=== PATIENT | female | born 1990 | race Caucasian/White ===

== ENCOUNTER → 2018-03-29 11:34 | Outpatient (REF) | payer BC, SELFPAY ==
[2018-03-30 14:36] LABS: Chlamydia Result Negative; GC Result Negative; Specimen Description CERVIX
== END ==
LOC: LBN 11:34
PROVIDERS: Visit Provider Nurse Practitioner Women's Health
DX: Z11.3 Encounter for screening for infections with a predominantly sexual mode of transmission (principal)
CPT/HCPCS: 87491; 87591

== ENCOUNTER 2019-02-16 15:59 | Outpatient (REF) | payer BC, SELFPAY | END 2019-02-16 16:19 | LOC: LBN 15:59 | PROVIDERS: Visit Provider Nurse Practitioner Women's Health | DX: R30.0 Dysuria (principal) | CPT/HCPCS: 87077; 87086; 87186 ==

== ENCOUNTER 2019-04-20 10:59 | Outpatient (REF) | payer BC, SELFPAY | END 2019-04-20 11:19 | LOC: LBN 10:59 | PROVIDERS: Visit Provider Nurse Practitioner Women's Health | DX: R30.0 Dysuria (principal) | CPT/HCPCS: 87077; 87086; 87186 ==

== ENCOUNTER 2019-04-23 07:08 | Emergency (ER) | payer BC, SELFPAY ==
[2019-04-23 07:21] VITALS: BP 106/61; PULSE 75; RESP 16; TEMP 36.9; O2SAT 100
--- NOTE | 2019-04-23 07:32 | ED.GENADUL_ITS ---
Discharge Plan Disposition Patient Disposition: HOME Condition: Stable Discharge Details Chief Complaint: Urinary Clinical Impression: UTI (urinary tract infection) Primary Care Provider: None,None ED Provider: Chio Yap Home Meds and New Rx's Prescriptions: New ciprofloxacin HCl [Cipro] 500 mg tablet 500 mg PO BID Qty: 13 RF: 0 Discontinued sulfamethoxazole-trimethoprim [Bactrim DS] 800-160 mg tablet 1 tab PO BID 7 Days Qty: 14 RF: 0 No Action Mirena 1 EACH intrauterine device 1 ea Intrauterine ONCE Qty: 1 RF: 0 Discharge Instructions Instructions: Ciprofloxacin (By mouth), Urinary Tract Infection in Women (ED), Kidney Infection (ED) Additional Instructions: Please return immediately to the emergency department if you develop any new or worsening symptoms or if you become otherwise concerned. Please stop taking Pyridium and Bactrim as we discussed. It is extremely important that you call as soon as possible to make an appointment to be seen in follow-up for this visit by your primary care doctor. Stand Alone Forms: Work Release Discharge Data Discharge Date/Time-TO BE ENTERED AT DEPARTURE: 04/23/19 08:50 Medical Decision Making Marielena Soliman is a 29-year-old woman without reported history of major medical problems who presented to the emergency department with right flank pain after getting Bactrim for bilateral flank pain 04/20, has been taking p.o. without issue. On exam patient is very well and nontoxic appearing. Positive right CVA tenderness. Benign abdominal exam. Concern for pyelonephritis. Exam/history is not consistent with sepsis, acute emergent intra-abdominal process, acute aortic etiology, life-threatening metabolic/electrolyte derangement, dehydration, methemoglobinemia secondary to Pyridium use, other acute emergent life-threatening process. Plan for UA, urine test. On record review urine culture positive for staph saprophyticus and E. coli, sensitivities pending. I called lab, who states that culture sensitivities to be released shortly. Will await. Sensitivities show E. coli sensitive to Bactrim. Unclear why patient symptoms have returned, will switch from Bactrim to Cipro to cover both E. coli and staph saprophyticus. Patient continues to be very well-appearing and nontoxic on exam, laughing, walking about the emergency department without issue. I had a lengthy discussion with the patient regarding home care including rest and need to stay hydrated, discontinuation of Bactrim or further Pyridium, return to emergency department precautions, importance of outpatient follow-up with PCP. Patient placed on list for assistance from care management to establish PCP. Patient verbalized understanding the plan was amenable. All questions were answered. Patient was discharged home with clear plan for outpatient follow-up. Medical Records Medical records reviewed: Yes I reviewed the patient's medical records. Lab Data Lab results reviewed: Yes I reviewed the patient's lab results. Laboratory Tests Range/Units 04/23/19 07:17 Urine Color (Yellow) [place] Urine Clarity (Clear) Clear Urine pH (5-8) Ur Specific Brilliant (1.005-1.025) 1.020 Urine Protein (Negative) mg/dL Color interference Urine Ketones (Negative) mg/dL Color interference Urine Blood (Negative) Color interference Urine Nitrite (Negative) Color interference Urine Bilirubin (Negative) Color interference Urine Urobilinogen (Up TO 0.2) EU/dL Color interference Ur Leukocyte Esterase (Negative) Color interference Urine RBC (0-2) 0-2 Urine WBC (0-5) HPF 0-2 Ur Epithelial Cells (Negative) HPF Moderate Urine Crystals (Negative) HPF Negative Urine Bacteria (Negative) HPF Few Urine Casts (Negative) LPF Negative Urine Mucus (Negative) Trace Ur Culture Indicated? No Urine Glucose (Negative) mg/dL Color interference HPI General Mode of arrival: ambulatory . Date/Time Provider Initiated Documentation: 04/23/19 07:32 . Limitations to Documentation: no limitations . Information obtained by: patient . HPI Narrative: Marielena Soliman is a 29 y/o woman without reported history of major medical problems presenting to the emergency department with right-sided flank pain. Per patient report and record review, patient was seen 04/20 for bilateral flank pain and urinary frequency. UA was performed, culture sent, patient sent home with 7-day prescription for Bactrim. Patient reports that she has been taking antibiotic as prescribed. Patient reports that her bilateral flank pain initially seemed to improve after she started Bactrim, but then right flank pain returned. Patient reports that flank pain is not worse than her initial presenting symptoms 04/20. Patient reports that she continues to have urinary frequency. Denies dysuria. Patient reports that she had temp of 100 at work today. Patient denies any other pain, vomiting, diarrhea, cough, shortness of breath, rash. She has been eating and drinking as usual. She reports that she has been able to go about her daily activities as usual. 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 Patient states that she would like to go back to her shift today after ED visit is completed. Has been taking Pyridium intermittently over the past 3 days. Related Data Home Medications Medication Instructions Recorded Confirmed levonorgestrel [Mirena] 1 ea INTRAUTERINE ONCE #1 implant 03/29/18 04/26/19 ciprofloxacin HCl [Cipro] 500 mg PO BID #13 tab 04/23/19 04/26/19 Previous Rx's Medication Instructions Recorded levonorgestrel [Mirena] 1 ea INTRAUTERINE ONCE #1 implant 03/29/18 ciprofloxacin HCl [Cipro] 500 mg PO BID #13 tab 04/23/19 Allergies Allergy/AdvReac Type Severity Reaction Status Date / Time nitrofurantoin Allergy Intermediate rash Verified 04/26/19 09:05 [From Macrobid] Penicillins Allergy Intermediate RASH,ITCHIN Unverified 04/26/19 09:05 G General Stated Complaint: Urinary LONNIE: 4 Review of Systems Review of Systems Constitutional: denies fevers Eyes: denies eye pain ENT: denies facial pain, dental pain, sore throat Cardiovascular: denies chest pain Respiratory: denies SOB, cough GI: denies abdominal pain, vomiting, diarrhea : Reports dysuria, flank pain MSK: denies back pain, neck pain, arthralgias, myalgias Skin: denies rash Neuro: denies headaches, numbness, weakness [facility] Social History Smoking/Tobacco Use Status: Never Female Reproductive History Menstrual control method: progestin IUCD History History 0 Para Hx # Term Pregnancies Multiple births Hx # Pregnancies Ectopic pregnancies AB induced Hx Number of Living Children AB spontaneous Exam Narrative Exam Narrative: Constitutional: well and [id number], pleasant, conversing normally HENT: head atraumatic/normocephalic/normal inspection, mucous membranes moist Eyes: conjunctiva normal, sclera normal, pupils 3mm b/l Neck: no stridor, normal ROM, trachea midline Chest: normal inspection Resp: normal work of breathing, LCTAB Cardio: normal rate, normal rhythm, no murmur appreciated GI: abdomen soft, non-tender, non-distended Back: normal inspection, no rash, positive right CVA tenderness, no left CVA tenderness Skin: warm, dry, normal color, no rash Neuro: alert, not altered, grossly non-focal, normal tone Ext: no edema Psych: normal mood, normal affect, normal behavior Course Vital Signs Temperature 36.9 C 04/23/19 07:21 Pulse 75 04/23/19 07:21 Respiratory Rate 16 04/23/19 07:21 Blood Pressure 106/61 04/23/19 07:21 Pulse Oximetry 100 04/23/19 07:21 Temperature 36.9 C 04/23/19 07:21 Temperature Source Skin 04/23/19 07:21 Pulse 75 04/23/19 07:21 Respiratory Rate 16 04/23/19 07:21 Respiratory Effort Non-Labored 04/23/19 07:21 Blood Pressure 106/61 04/23/19 07:21 Blood Pressure Position Sitting 04/23/19 07:21 Pulse Oximetry 100 04/23/19 07:21 Pain Level 5 04/23/19 07:21
[2019-04-23 08:06] LABS: Clarity Clear (Clear)
[2019-04-23 08:20] LABS: Bilirubin Color Interference (Negative); Blood Color Interference (Negative); Glucose Color Interference mg/dL (Negative); Ketones Color Interference mg/dL (Negative); Leukocyte Esterase Color Interference (Negative); Nitrite Color Interference (Negative); Urobilinogen Color Interference EU/dL (Up TO 0.2)
[2019-04-23 08:21] LABS: RBC 0-2 (0-2); WBC 0-2 HPF (0-5)
[2019-04-23 08:22] LABS: Bacteria Few HPF (Negative); C & S Indicated? No; Casts Negative LPF (Negative); Crystals Negative HPF (Negative); Epithelial Cells Moderate HPF (Negative); Mucus Trace (Negative)
[2019-04-23] MEDS: Ciprofloxacin 500 MG TAB PO (08:51)
== END 2019-04-23 08:50 | disposition home or self-care (01) ==
PROVIDERS: Emergency Provider Student in an Organized Health Care Education/Training Program
DX: N39.0 Urinary tract infection, site not specified (principal); R35.0 Frequency of micturition; R50.9 Fever, unspecified
CPT/HCPCS: 36415; 81025; 99283; 81003; 81015

== ENCOUNTER 2020-02-27 11:58 | Outpatient (REF) | payer BC, SELFPAY | END 2020-02-27 12:18 | LOC: LBN 11:58 | PROVIDERS: Visit Provider Obstetrics & Gynecology | DX: N39.0 Urinary tract infection, site not specified (principal) | CPT/HCPCS: 87077; 87086; 87186 ==

== ENCOUNTER 2023-12-07 10:10 | Outpatient (REF) | payer BC, SELFPAY ==
--- NOTE | 2023-12-07 09:00 | PAPFT_PTH ---
PATIENT: Marielena Soliman LOC: [facility] U#:[id number] AGE/SX: 33/F ROOM: RE12/07/[address]: Bella Rodriguez NP : 1990 BED: DIS: 12/07/2023 SPEC #: [id number] RECD: 12/07/23 13:09 STATUS: DEMETRIUS WALL #: [id number] TIM: 12/07/23 09:[address]: Bella Rodriguez NP DEPT: [facility] Cytology RECD BY: Adelina Lott Tissues: 1 - CX/ENDOCX FOR PAP SMEARS Procedures: PAP THIN PREP/UVM Screening Comments: [id number] (CHLAMYDIA/GC)
[2023-12-08 13:07] LABS: Chlamydia Result Negative (Negative); GC Result Negative (Negative)
== END 2023-12-07 10:11 | disposition home or self-care (01) ==
LOC: LBN 10:10
PROVIDERS: PCP Nurse Practitioner Women's Health; Visit Provider Nurse Practitioner Women's Health
DX: Z12.4 Encounter for screening for malignant neoplasm of cervix (principal); B96.89 Other specified bacterial agents as the cause of diseases classified elsewhere
CPT/HCPCS: 87491; 87591; 88142

== ENCOUNTER 2024-03-27 11:50 | Emergency (ER) | payer OTHER, SELFPAY ==
--- NOTE | 2024-03-27 12:00 | DI.RAD_ITS ---
Exam(s) XR PORTABLE CHEST AP EXAM: XR PORTABLE CHEST AP CLINICAL HISTORY: central chest/back pain. TECHNIQUE: 2D digital imaging was performed. COMPARISON: No exams were available for comparison FINDINGS: Single AP portable view. Heart size is upper normal. The mediastinum is not widened. Right lung is clear. There is platelike atelectasis in the left lower lobe retrocardiac region, spec ifically in the posterior basal segment of the left lower lobe. There are no pleural effusions. IMPRESSION: Platelike atelectasis noted in left lower lobe. DATA REPOSITORY: RADIATION DOSE DELIVERED:
--- NOTE | 2024-03-27 12:00 | RT.EKG_ITS ---
APPROVED REPORT Exam: Resting ECG Reason for Exam: cant take deep breath Patient Location: E HR:67 bpm ECG Measurements Heart Rate 67 AXIS AK 143 P 58 QRSd 87 QRS 29 QT 409 T 14 QTc 434 Conclusion Sinus rhythm...normal P axis, V-rate 60- 99 Probable left atrial enlargement...P >50mS, <-0.10mV V1 Physician: no stemi
[2024-03-27 12:03] VITALS: BP 151/81; PULSE 78; RESP 20; TEMP 37.2; O2SAT 98
--- NOTE | 2024-03-27 12:12 | ED.GENADUL_ITS ---
Discharge Plan Disposition Patient Disposition: Home Condition: Good Discharge Details Clinical Impression: Back muscle spasm Primary Care Provider: Bella Rodriguez NP ED Provider: Ricardo Yap Home Meds and New Rx's Prescriptions: New cyclobenzaprine 10 mg tablet 10 mg PO TID Qty: 14 0RF No Action Mirena 1 EACH intrauterine device 1 ea Intrauterine ONCE Qty: 1 0RF Discharge Instructions Instructions: Muscle Spasm ED Additional Instructions: At this time your signs and symptoms are clinically consistent with a back sprain. This can cause significant pain and take a fair bit of time to heal. I expect 1 to 2 months for potential resolution. In the meantime do not lift anything greater than 5 pounds for the next 2 weeks. Avoid any significant vigorous physical activity. Perform easy gentle regular activities at home without any significant bending or lifting. Please take the Flexeril as directed but do not take it when driving or operating any vehicles or heavy machinery, swimming, taking long baths, or operating firearms. Please use a heating pad as often as possible on your back. Perform daily gentle stretches on your back. Please continue to take the Tylenol and Motrin. You can take 1000 mg of Tylenol every 6 hours and 600 mg of ibuprofen every 6 hours. If you notice any worsening of your symptoms, or any new symptoms such as vomiting, diarrhea, fever, chills, shortness of breath, chest pain, numbness or tingling in your groin or legs, weakness in your legs, loss of control for your bowels or bladder, or fainting , please return immediately to the emergency department for reevaluation. Please follow up with your primary care provider as soon as possible for reassessment and reevaluation. As always, it was a pleasure participating in your medical care today. Referrals: Bella Rodriguez NP [Primary Care Provider] - [facility] General Date/Time Provider Initiated Documentation: 03/27/24 11:52 . HPI Narrative: 34-year-old female with no significant past medical history who does have a Mirena intrauterine device presents today for evaluation of back pain. Patient states that she was walking and she had a sudden cramp like sensation in her back between her shoulder blades that took her breath away. No stabbing ripping or tearing pain. Pain is made worse with bending and moving. It is improved by nothing except for sitting still and not moving. She denies any cough or fever or chills. No long trips, recent surgeries or history of blood clots. She denies any current tobacco use. She denies any other complaints at this time. She denies any symptoms like this in the past. Related Data Home Medications ?Medication ?Instructions ?Recorded ?Confirmed levonorgestrel 21 mcg/24 hr (up to 1 ea intrauterine ONCE #1 implant 03/29/18 03/27/24 8 years) 52 mg intrauterine device (Mirena) cyclobenzaprine 10 mg tablet 10 mg PO TID #14 tabs 03/27/24 Previous Rx's ?Medication ?Instructions ?Recorded levonorgestrel 21 mcg/24 hr (up to 1 ea intrauterine ONCE #1 implant 03/29/18 8 years) 52 mg intrauterine device (Mirena) cyclobenzaprine 10 mg tablet 10 mg PO TID #14 tabs 03/27/24 Allergies Allergy/AdvReac Type Severity Reaction Status Date / Time nitrofurantoin (From Allergy Intermediate rash Verified 12/07/23 08:41 Macrobid) Penicillins Allergy Intermediate RASH,ITCHIN Unverified 12/07/23 08:41 G General Stated Complaint: Nk/Back Pain LONNIE: 3 Review of Systems All systems reviewed & are unremarkable except as noted in HPI and below Exam Narrative Exam Narrative: 1.Const: Well-nourished, Well-developed, appearing stated age 2.Eyes: PERRL, no conjunctival injection, and symmetrical lids. 3.ENT: Atraumatic external nose and ears. Moist MM. Neck: Symmetric, trachea midline, No thyromegaly. 4.CVS: +S1/S2, No murmurs or gallops. Peripheral pulses 2+ and equal in all extremities. Brisk capillary refill in all extremities. Radial pulses are +2 bilaterally. 5.RESP: Unlabored respiratory effort. Clear to auscultation bilaterally. No wheezes rales or rhonchi 6.GI: Soft, Nontender/Nondistended, No hepatosplenomegaly. No guarding or rebound. 7.MSK: Normocephalic/Atraumatic, Extremities w/o deformity or ttp No cyanosis or clubbing, Normal movement of all extremities. No reproducible midline cervical thoracic lumbar spine tenderness. No reproducible paraspinal tenderness. Patient states that the pain is located at around T3-T4 however it is slightly inside. No scapular pain. 8.Skin: Warm, Dry. No rashes or lesions. 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 Sensation grossly intact, no focal neurologic deficits. 10.Psych: (AAO) x3. Appropriate mood and affect Course Vital Signs Vital signs: Vital Signs Temperature 37.2 C 03/27/24 12:03 Pulse 78 03/27/24 12:03 Respiratory Rate 20 03/27/24 12:03 Blood Pressure 151/81 H 03/27/24 12:03 Pulse Oximetry 98 03/27/24 12:03 Temperature 37.2 C 03/27/24 12:03 Pulse 78 03/27/24 12:03 Respiratory Rate 20 03/27/24 12:03 Blood Pressure 151/81 H 03/27/24 12:03 Pulse Oximetry 98 03/27/24 12:03 Medical Decision Making 34-year-old female with no significant past medical history who does have a Mirena intrauterine device presents today for evaluation of back pain. Patient states that she was walking and she had a sudden cramp like sensation in her back between her shoulder blades that took her breath away. No stabbing ripping or tearing pain. Pain is made worse with bending and moving. It is improved by nothing except for sitting still and not moving. She denies any cough or fever or chills. No long trips, recent surgeries or history of blood clots. She denies any current tobacco use. She denies any other complaints at this time. She denies any symptoms like this in the past. Exam demonstrates well-appearing female, she is splinting mildly because of the pain, no reproducible pain on palpation of the back or spine, however it is made worse with movement. Radial pulses are equal. Symptoms appear inconsistent with dissection. No calf tenderness, recent long trips surgeries or procedures. She does have a Mirena device, however symptoms do not appear overly consistent with PE at this time. Differential is highest for muscle spasm, symptoms appear inconsistent clinically at this time for dissection PE or NM. Screening EKG was performed and shows no significant ST elevation, depression or STEMI. No evidence of S1Q3T3. We will give Flexeril, and NSAIDs, monitor closely and reassess. Will get a chest x-ray. Symptoms appear less likely to be a pneumothorax. X-ray shows evidence of platelike atelectasis noted in the left lower lobe, this is not the focus of her pain. On reassessment she is feeling much better. She would like to go home. Radial pulses are equal bilaterally. No neurovascular deficits. She feels well. No indication for emergent CT imaging at this time. Symptoms at this time appear clinically inconsistent with PE dissection pneumothorax or other concerning etiology. Symptoms appear most clinically consistent with mild muscle spasm. Will give 4 [place] tablets for home use, muscle relaxants, and recommend continued NSAID therapy. Discussed red flags for which to return. I have extensively reviewed the treatment plan and discharge instructions with the patient. I have addressed all patient concerns at this time. The patient was made aware of what symptoms to monitor for that would warrant a return to the emergency department. Discussed the plan with the patient, they demonstrate verbal understanding and agreement with our assessment and plan at this time. The documentation in this chart was dictated using [employer] dictation software. Please excuse any dictation errors. FINDINGS: Single AP portable view. Heart size is upper normal. The mediastinum is not widened. Right lung is clear. There is platelike atelectasis in the left lower lobe retrocardiac region, specifically in the posterior basal segment of the left lower lobe. There are no pleural effusions. IMPRESSION: Platelike atelectasis noted in left lower lobe. Quality:SDOH Health Related Social Needs: No Data to Display PFSH All Active Problems (Updated 03/27/24 @ 13:00 by Ricardo Yap DO) Back muscle spasm (Acute) Yeast infection of the vagina (Acute) Dysuria (Acute) IUD surveillance (Acute 12/07/23) Social History Smoking/Tobacco Use Status: Never Smoking risk assessment performed?: Yes Alcohol Intake: current Alcohol Intake frequency: holidays/special occasions only Drug use: Never Substance use type: does not use Housing: house Do you feel safe at home: Yes Do you feel safe in your relationship?: Yes Female Reproductive History Menstrual control method: progestin IUCD History History 0 Para Hx # Term Pregnancies Multiple births Hx # Pregnancies Ectopic pregnancies AB induced Hx Number of Living Children AB spontaneous
[2024-03-27] MEDS: Cyclobenzaprine 10 MG TAB PO (12:19)
[2024-03-27] MEDS: Acetaminophen 500 MG TAB 1000 MG PO (12:19)
[2024-03-27 12:23] VITALS: PULSE 78; RESP 18; O2SAT 100
== END 2024-03-27 13:07 | disposition home or self-care (01) ==
PROVIDERS: Emergency Provider Student in an Organized Health Care Education/Training Program; PCP Nurse Practitioner Women's Health
DX: M62.830 Muscle spasm of back (principal); Y99.0 Civilian activity done for income or pay
CPT/HCPCS: 93005; 99283; 71045; 93010